=== PATIENT | female | born 1960 | race Caucasian/White ===

== ENCOUNTER 2016-05-22 15:47 | Emergency (ER) | payer BC ==
[2016-05-22] MEDS ORDERED: NORMAL SALINE 1000 ML 1,000 ML IV ONE (16:11)
--- NOTE | 2016-05-22 16:13 | ER Document Report ---
ED Medical Screen (RME) - General Chief Complaint: Abdominal Pain Stated Complaint: URINARY ISSUE Mode of Arrival: Ambulatory Information source: Patient Notes: Patient was recently treated for a kidney infection with Cipro. Patient states she's taken 5 doses of the antibiotic. Patient presents complaining of right flank pain, epigastric and generalized abdominal pain. Patient reports fever at home of the 100.9. Patient does complain of nausea but denies any vomiting. Patient reports generalized abdominal pain as well as constipation that was unresponsive to [id number] treatments. Patient states blood sugar has been elevated recently as well. hx: Diabetes, hysterectomy TRAVEL OUTSIDE OF THE [place] IN LAST 30 DAYS: No - Related Data Allergies/Adverse Reactions: adhesive tape Allergy (Verified 05/20/16 04:33) Physical Exam - Vital signs Vitals: Temp Pulse Resp BP Pulse Ox 99.3 F 114 H 18 136/74 H 97 05/22/16 16:03 05/22/16 16:03 05/22/16 16:03 05/22/16 16:03 05/22/16 16:03 - Back Back: CVA tenderness - Right Course - Vital Signs Vital signs: Temp Pulse Resp BP Pulse Ox 99.3 F 114 H 18 136/74 H 97 05/22/16 16:03 05/22/16 16:03 05/22/16 16:03 05/22/16 16:03 05/22/16 16:03
[2016-05-22 17:15] LABS: ABSOLUTE BASOPHILS # (AUTO) 0.1 10^3/uL (0.0-0.2); ABSOLUTE EOSINOPHILS # (AUTO) 0.1 10^3/uL (0.0-0.6); ABSOLUTE LYMPHOCYTES (AUTO) 0.9 10^3/uL (0.5-4.7); ABSOLUTE MONOCYTES (AUTO) 1.5 10^3/uL (0.1-1.4); ABSOLUTE NEUT (AUTO) 13.2 10^3/uL (1.7-8.2); BASOPHILS % (AUTO) 0.4 % (0-2); EOSINOPHILS % (AUTO) 0.5 % (0-6); HEMATOCRIT 31.3 % (36.0-47.0); HEMOGLOBIN 10.3 g/dL (12.0-15.5); HGB HCT DIFFERENCE -0.4; MEAN CORPUSCULAR HEMOGLOBIN 25.6 pg (27.0-33.4); MEAN CORPUSCULAR HGB CONC 32.7 g/dL (32.0-36.0); MEAN CORPUSCULAR VOLUME 78 fl (80-97); MONOCYTES % (AUTO) 9.5 % (3-13); RED CELL DISTRIBUTION WIDTH 16.1 % (11.5-14.0); SEGMENTED NEUTROPHILS % (AUTO) 83.6 % (42-78); WHITE BLOOD COUNT 15.8 10^3/uL (4.0-10.5)
[2016-05-22 17:22] LABS: PROTHROMBIN TIME 14.4 SEC (11.4-15.4)
[2016-05-22 17:31] LABS: ALANINE AMINOTRANSFERASE 41 U/L (9-52); ALBUMIN 2.9 g/dL (3.5-5.0); ALKALINE PHOSPHATASE 259 U/L (38-126); ANION GAP 16 (5-19); ASPARTATE AMINO TRANSFERASE 21 U/L (14-36); BILIRUBIN,TOTAL 0.6 mg/dL (0.2-1.3); BLOOD UREA NITROGEN 19 mg/dL (7-20); CALCIUM 8.9 mg/dL (8.4-10.2); CARBON DIOXIDE 22 mmol/L (22-30); CHLORIDE 97 mmol/L (98-107); GLUCOSE 300 mg/dL (75-110); POTASSIUM 4.4 mmol/L (3.6-5.0); SODIUM 134.8 mmol/L (137-145); TOTAL PROTEIN 5.9 g/dL (6.3-8.2)
[2016-05-22 17:41] LABS: APPEARANCE,URINE SLIGHTLY-CLOUDY; BILIRUBIN,URINE NEGATIVE (NEGATIVE); GLUCOSE, URINE >=500 mg/dL (NEGATIVE); KETONES,URINE 20 mg/dL (NEGATIVE); LEUKOCYTE ESTERASE,URINE MODERATE (NEGATIVE); NITRITE,URINE NEGATIVE (NEGATIVE); PROTEIN,URINE 30 mg/dL (NEGATIVE); URINE SPECIFIC GRAVITY 1.013; UROBILINOGEN,URINE NEGATIVE mg/dL (<2.0)
[2016-05-22 20:47] LABS: VENOUS BLOOD BASE EXCESS -2.3 mmol/L; VENOUS BLOOD HCO3 22.6 mmol/L (20-32); VENOUS BLOOD PCO2 39.5 mmHg (35-63); VENOUS BLOOD PH 7.38 (7.30-7.42)
--- NOTE | 2016-05-22 21:15 | EKG REPORT ---
SEVERITY:- BORDERLINE ECG - SINUS TACHYCARDIA LOW VOLTAGE IN FRONTAL LEADS NONSPECIFIC ST-T CHANGES- INFERIOR LEADS : Confirmed by: Josep Tian MD 22-May-2016 21:15:14
[2016-05-22] MEDS ORDERED: CIPROFLOXACIN HCL 500 MG TABLET PO ONE (21:31)
[2016-05-22] MEDS ORDERED: LIDOCAINE 5% (700 MG) TRANSDERMAL ADH..PATCH TP ONE (21:59)
--- NOTE | 2016-05-22 22:08 | ER Document Report ---
ED General - General Chief Complaint: Abdominal Pain Stated Complaint: URINARY ISSUE Mode of Arrival: Ambulatory TRAVEL OUTSIDE OF THE [place] IN LAST 30 DAYS: No - HPI Patient complains to provider of: right flank pain possible constipation Notes: Patient was seen recently states right flank pain ongoing since with recent diagnosed with pyelonephritis and constipation patient was started on ciprofloxacin and was also given a mirror lacks. Patient states continues to have pain in the right flank. Patient states she has been able to tolerate her medications. Also was taking Janelle lax did have a large bowel movement however states that she tried it enema today with no relief. Patient otherwise upon evaluation nontoxic looking resting very comfortably. Patient Was Noted to Be Tachycardic upon in Her Entrance into the ER. IV Fluids and Saline Lock Have Been Ordered - Related Data Allergies/Adverse Reactions: adhesive tape Allergy (Verified 05/20/16 04:33) Past Medical History - General Information source: Patient - Social History Smoking Status: Unknown if Ever Smoked Family History: Reviewed & Not Pertinent Review of Systems - Review of Systems Constitutional: No symptoms reported EENT: No symptoms reported Cardiovascular: No symptoms reported Respiratory: No symptoms reported Gastrointestinal: Other - Constipation right flank pain Genitourinary: No symptoms reported Female Genitourinary: No symptoms reported Musculoskeletal: No symptoms reported Skin: No symptoms reported Hematologic/Lymphatic: No symptoms reported Neurological/Psychological: No symptoms reported Physical Exam - Vital signs Vitals: Temp Pulse Resp BP Pulse Ox 99.3 F 114 H 18 136/74 H 97 05/22/16 16:03 05/22/16 16:03 05/22/16 16:03 05/22/16 16:03 05/22/16 16:03 Interpretation: Normal - General General appearance: Appears well, Alert - HEENT Head: Normocephalic, Atraumatic Eyes: Normal Pupils: PERRL - Respiratory Respiratory status: No respiratory distress Chest status: Nontender Breath sounds: Normal Chest palpation: Normal - Cardiovascular Rhythm: Regular Heart sounds: Normal auscultation Murmur: No - Abdominal Inspection: Normal Distension: No distension Bowel sounds: Normal Tenderness: Tender - Diffuse tenderness mild nonspecific. No: McBurney's point , Wayne's sign, Guarding, Rebound Organomegaly: No organomegaly - Back Back: Normal, Nontender - Extremities General upper extremity: Normal inspection, Nontender, Normal color, Normal ROM , Normal temperature General lower extremity: Normal inspection, Nontender, Normal color, Normal ROM , Normal temperature, Normal weight bearing. No: Waleska's sign - Neurological Neuro grossly intact: Yes Cognition: Normal Orientation: AAOx4 Gómez Coma Scale Eye Opening: Spontaneous Gómez Coma Scale Verbal: Oriented Cedar Coma Scale Motor: Obeys Commands Cedar Coma Scale Total: 15 Speech: Normal Motor strength normal: LUE, RUE, LLE, RLE Sensory: Normal - Psychological Associated symptoms: Normal affect, Normal mood - Skin Skin Temperature: Warm Skin Moisture: Dry Skin Color: Normal Course - Re-evaluation Re-evalutation: 05/23/16 03:09 Patient does have slight elevation in her white count from previous visit. Upon initial evaluation laboratory have been performed and will perform a CT scan to evaluate her kidneys further. Shows some stranding consistent with pyelonephritis however no fluid collection no signs of abscess formation. I did after initial evaluation request nursing staff place an IV and IV fluids this was never performed On last evaluation did review of patient's lab results and CT scans with the patient is signs of overt constipation recommend patient start on a stool softener patient agrees patient will be given her dose of nightly Cipro as her urinalysis has improved patient states she would rather go ahead and leave and not wait for the IV fluids. Charge nurse supervising nurse notified of lack of IV access - Vital Signs Vital signs: Temp Pulse Resp BP Pulse Ox 99.3 F 114 H 18 136/74 H 97 05/22/16 16:03 05/22/16 16:03 05/22/16 16:03 05/22/16 16:03 05/22/16 16:03 - Laboratory Result Diagrams: 05/22/16 16:50 05/22/16 16:50 Laboratory results interpreted by me: 05/22/16 05/22/16 05/22/16 16:50 16:50 16:50 WBC 15.8 H Hgb 10.3 L Hct 31.3 L MCV 78 L MCH 25.6 L RDW 16.1 H Seg Neutrophils % 83.6 H Lymphocytes % 6.0 L Absolute Neutrophils 13.2 H Absolute Monocytes 1.5 H Sodium 134.8 L Chloride 97 L Est GFR ( Amer) 57 L Est GFR (Non-Af Amer) 47 L Glucose 300 H Alkaline Phosphatase 259 H Total Protein 5.9 L Albumin 2.9 L Urine Protein 30 H Urine Glucose (UA) >=500 H Urine Ketones 20 H Urine Blood MODERATE H Ur Leukocyte Esterase MODERATE H Discharge - Discharge Clinical Impression: Pyelonephritis Condition: Good Disposition: HOME, SELF-CARE Additional Instructions: Your CAT scan today shows changes to kidney consistent with pyelonephritis but is no abscess formation. More likely this is why you're still having her pain. Please continue your antibiotics. Your urinalysis has improved. I also gave the Lidoderm patches for your pain. If this improves her pain bowel movement have the perception filled. Please follow-up with your primary care physician. Please drink more water to stay hydrated. Prescriptions: Lidocaine [Lidoderm 5% (700 mg) Transdermal Patch] 1 patch TP DAILY #10 adh..patch Forms: Return to Work
[2016-05-23 00:10] VITALS: BP 134/68
== END 2016-05-23 00:10 | disposition home or self-care (01) ==
LOC: ER 15:47
DX: N12 Tubulo-interstitial nephritis, not specified as acute or chronic (principal); K59.00 Constipation, unspecified; D72.829 Elevated white blood cell count, unspecified; R10.9 Unspecified abdominal pain; R00.0 Tachycardia, unspecified; Z91.048 Other nonmedicinal substance allergy status
CPT/HCPCS: 36415; 76380; 80053; 81001; 82803; 83605; 85025; 85610; 87040; 87086; 93005; 93010; 99284

== ENCOUNTER 2017-04-27 08:05 | Outpatient (CLI) | payer BC ==
[~2017-04-27 08:05] MED LIST: ACETAMINOPHEN 325 MG TABLET PO PRN; DIPHENHYDRAMINE HCL 25 MG CAPSULE PO PRN; IRON DEXTRAN COMPLEX 25 MG in SYRINGE, DISPOSABLE, 1 EACH IV PRN; IRON DEXTRAN COMPLEX 975 MG in NORMAL SALINE 1000 ML 1,000 ML IV PRN; NORMAL SALINE 250 ML IV PRN
[2017-04-27 11:31] VITALS: BP 120/66
== END 2017-04-27 15:23 | disposition home or self-care (01) ==
LOC: II 08:05 → 5TH 08:06 → II 15:23
PROVIDERS: ATTEND Internal Medicine
PROC: 3E033GC Introduction of Other Therapeutic Substance into Peripheral Vein, Percutaneous Approach (ICD-10-PCS; principal; 2017-04-27)
DX: D64.9 Anemia, unspecified (principal); D63.8 Anemia in other chronic diseases classified elsewhere
CPT/HCPCS: 96365; 96366; 96374; J1750; J7030; J3490; 96375

== ENCOUNTER → 2017-07-19 | Outpatient (CLI) | payer BC | LOC: WI 08:58 | PROVIDERS: ATTEND Physician Assistant Medical | DX: Z12.31 Encounter for screening mammogram for malignant neoplasm of breast (principal) | CPT/HCPCS: 77067 ==

== ENCOUNTER → 2018-03-22 | Outpatient (CLI) | payer BC ==
--- NOTE | 2018-03-22 14:00 | RADIOLOGY REPORT (SQ) ---
EXAM DESCRIPTION: SMALL BOWEL SERIES COMPLETED DATE/TIME: 03/22/2018 12:24 pm REASON FOR STUDY: ANEMIA, UNSPECIFIED D64.9 ANEMIA, UNSPECIFIED COMPARISON: None. FLUOROSCOPY TIME: 0.6 MINUTES OF FLUOROSCOPY WAS USED. 8 images saved to PACS. LIMITATIONS: None. PROCEDURE: Initial extermination supervisor image of abdomen acquired, followed by administration of oral contrast. Se rial radiographic images acquired. Fluoroscopic images recorded of the terminal ileum and other eusebia cated areas. All images stored on PACS. FINDINGS: RET[employer] ANALYST KUB: Non-obstructive bowel pattern. No abnormal calcifications. Soft tissue planes normal. STOMACH: No significant reflux. Normal distention without abnormality. DUODENUM: Normal mucosal pattern with adequate distention. No displacement or obstruction. JEJUNUM: Normal mucosal pattern. No dilatation, segmentation, strictures or masses. ILEUM: Normal mucosal pattern. No dilatation, segmentation, strictures or masses. TERMINAL ILEUM AND ILEO-CECAL VALVE: Normal mucosal pattern without "cobble-stoning" or stricture. N ormal compression. PROXIMAL COLON: Incompletely imaged. No abnormality. OTHER: Transit time for contrast reached the colon was normal with filling of the cecum seen 2.5 hour s. IMPRESSION: NORMAL SMALL BOWEL EXAM. COMMENT: Quality ID [id number]: Final reports for procedures using fluoroscopy that document radiation exp osure indices, or exposure time and number of fluorographic images (if radiation exposure indices are not available) TECHNICAL DOCUMENTATION: JOB ID: [id number] [employer]- All Rights Reserved Reading location - IP/workstation name: [email or web address] [id number]
== END ==
LOC: RAD 08:51
PROVIDERS: ATTEND Internal Medicine Gastroenterology
DX: D64.9 Anemia, unspecified (principal)
CPT/HCPCS: 74250

== ENCOUNTER 2019-10-25 09:06 | Outpatient (CLI) | payer BC, OTHER ==
[~2019-10-25 09:06] MED LIST changes: -ACETAMINOPHEN 325 MG TABLET PO PRN; -DIPHENHYDRAMINE HCL 25 MG CAPSULE PO PRN; +FERRIC CARBOXYMALTOSE 750 MG in NORMAL SALINE 250 ML IV PRN; -IRON DEXTRAN COMPLEX 25 MG in SYRINGE, DISPOSABLE, 1 EACH IV PRN; -IRON DEXTRAN COMPLEX 975 MG in NORMAL SALINE 1000 ML 1,000 ML IV PRN
[2019-10-25 09:15] VITALS: BP 142/74
== END 2019-10-25 10:15 | disposition home or self-care (01) ==
LOC: II 09:06 → 5TH 09:12 → II 10:15
PROVIDERS: ATTEND Internal Medicine
DX: D50.8 Other iron deficiency anemias (principal); K90.9 Intestinal malabsorption, unspecified
CPT/HCPCS: 96365; J7050; J1439

== ENCOUNTER 2019-11-01 09:03 | Outpatient (CLI) | payer BC, OTHER ==
[2019-11-01 09:20] VITALS: BP 121/65
== END 2019-11-01 10:40 | disposition home or self-care (01) ==
LOC: II 09:03 → 5TH 09:03 → II 10:40
PROVIDERS: ATTEND Internal Medicine
DX: D50.8 Other iron deficiency anemias (principal); K90.9 Intestinal malabsorption, unspecified
CPT/HCPCS: 96374; J7050; J1439; 96365